=== PATIENT | female | born 1960 | race Caucasian/White ===

== ENCOUNTER → 2017-05-11 | Outpatient (CLI) | payer OTHER | LOC: COL.LAB 08:55 | DX: Z01.89 Encounter for other specified special examinations (principal) ==

== ENCOUNTER → 2017-10-25 | Outpatient (CLI) | payer OTHER | LOC: COL.LAB 10:41 | DX: Z01.89 Encounter for other specified special examinations (principal) ==

== ENCOUNTER → 2017-11-11 | Outpatient (CLI) | payer OTHER | LOC: MC.RAD 08:30 | DX: Z12.31 Encounter for screening mammogram for malignant neoplasm of breast (principal) ==

== ENCOUNTER → 2018-11-18 | Outpatient (CLI) | payer OTHER | LOC: MC.RAD 11:02 | DX: Z12.31 Encounter for screening mammogram for malignant neoplasm of breast (principal); Z80.3 Family history of malignant neoplasm of breast ==

== ENCOUNTER 2019-06-18 10:58 | Emergency (ER) | payer OTHER ==
[~2019-06-18] VITALS: Ht 170.2 cm; Wt 68.2 kg
[2019-06-18 11:01] VITALS: TEMP 98.1
[2019-06-18] MEDS ORDERED: PROZAC 10MG10 MG PO (11:04)
[2019-06-18] MEDS ORDERED: PRILOSEC 20MG20 MG PO (11:05)
[2019-06-18] MEDS ORDERED: LIPITOR 10MG10 MG PO (11:05)
[2019-06-18] MEDS ORDERED: NORCO 325 MG-51 TAB PO (11:37)
[2019-06-18 11:46] VITALS: BP 112/73; PULSE 62
== END 2019-06-18 12:09 | disposition home or self-care (01) ==
LOC: COL.ER 10:58
DX: S86.912A Strain of unspecified muscle(s) and tendon(s) at lower leg level, left leg, initial encounter (principal); F32.9 Major depressive disorder, single episode, unspecified; Z88.2 Allergy status to sulfonamides; Z88.8 Allergy status to other drugs, medicaments and biological substances; Z90.5 Acquired absence of kidney; W17.89XA Other fall from one level to another, initial encounter; X50.1XXA Overexertion from prolonged static or awkward postures, initial encounter; Y92.007 Garden or yard of unspecified non-institutional (private) residence as the place of occurrence of the external cause
CPT/HCPCS: L1846

== ENCOUNTER → 2020-01-11 | Outpatient (CLI) | payer OTHER ==
[~2020-01-11] MED LIST: LIPITOR 10MG10 MG PO; NORCO 325 MG-51 TAB PO; PRILOSEC 20MG20 MG PO; PROZAC 10MG10 MG PO
== END ==
LOC: MC.RAD 12-19 15:30
DX: Z12.31 Encounter for screening mammogram for malignant neoplasm of breast (principal)

== ENCOUNTER 2022-09-28 10:58 | Day surgery (SDC) | payer OTHER ==
[~2022-09-28] VITALS: Ht 170.2 cm; Wt 68.3 kg
[2022-09-28] MEDS ORDERED: NATURAL MAGNES200 MG PO (11:48)
[2022-09-28] MEDS ORDERED: MULTI-VITAMIN W1 TA1 PO (11:48)
[2022-09-28 14:50] VITALS: BP 134/77; PULSE 72; TEMP 97.3
[2022-09-28 15:00] VITALS: BP 118/66; PULSE 68
[2022-09-28 15:15] VITALS: BP 121/74; PULSE 75
[2022-09-28 15:41] VITALS: BP 122/79; PULSE 63; TEMP 98.6
--- NOTE | 2022-09-28 16:10 | NUR ---
patient is discharged at this time via wheelchair accompanied by to home bound vehicle. patient takes a copy of her discharge paperwork and personal belongings with her at time of discharge. she verbalized understanding of education given. before discharge patient is able to tolerate po well with no difficulty, denies pain or discomfort, vss.
== END 2022-09-28 16:10 ==
LOC: SDCO 10:58
DX: M75.111 Incomplete rotator cuff tear or rupture of right shoulder, not specified as traumatic (principal); M25.811 Other specified joint disorders, right shoulder; K21.9 Gastro-esophageal reflux disease without esophagitis; F41.9 Anxiety disorder, unspecified; F32.A Depression, unspecified; Z79.899 Other long term (current) drug therapy; M19.011 Primary osteoarthritis, right shoulder
CPT/HCPCS: A4619; J0171; J0690; J1100; J2250; J2370; J2405; J2704; J2795; J3010; J7120

== ENCOUNTER 2024-01-19 18:28 | Emergency (ER) | payer OTHER ==
[~2024-01-19] VITALS: Ht 170.2 cm; Wt 65.9 kg
[~2024-01-19 18:28] MED LIST changes: +MULTI-VITAMIN W1 TA1 PO; +NATURAL MAGNES200 MG PO
[2024-01-19 18:47] VITALS: PULSE 69; TEMP 98.3
[2024-01-19] MEDS ORDERED: Acetaminophen 325 MG TAB PO ONE (20:30)
[2024-01-19 21:23] VITALS: BP 122/60
== END 2024-01-19 21:43 | disposition home or self-care (01) ==
LOC: COL.ER 18:28
DX: S71.111A Laceration without foreign body, right thigh, initial encounter (principal); Z88.6 Allergy status to analgesic agent; W26.8XXA Contact with other sharp object(s), not elsewhere classified, initial encounter